=== PATIENT | female | born 1935 | race Caucasian/White ===

== ENCOUNTER 2017-04-15 09:37 | Emergency (ER) | payer MEDICARE ==
[2017-04-15 10:42] VITALS: BP 141/56
--- NOTE | 2017-04-15 11:23 | UC ---
UC General HPI - HPI Summary HPI Summary: Patient presents with complaints of 2-3 day onset generalized fatigue, body aches, and cough. She denies any chest or abdomen pain, nausea, vomiting, diarrhea, rashes or joint pain. She states she has had difficulty sleeping due to coughing. She states the coughing is nonproductive. - History of Current Complaint Chief Complaint: UCGeneralIllness Stated Complaint: COUGH Time Seen by Provider: 04/15/17 10:43 Hx Obtained From: Patient Onset/Duration: Gradual Onset, Lasting Days Timing: Constant Onset Severity: Mild Current Severity: Moderate Pain Intensity: 0 Associated Signs & Symptoms: Positive: Cough, Fever, Other - fatigue, malaise, weakness - Allergy/Home Medications Allergies/Adverse Reactions: Allergies Allergy/AdvReac Type Severity Reaction Status Date / Time No Known Allergies Allergy Verified 04/15/17 10:37 PMH/Surg Hx/FS Hx/Imm Hx Previously Healthy: Yes - Surgical History Surgical History: Yes Surgery Procedure, Year, and Place: lipo removal x3 - Family History Known Family History: Positive: Cardiac Disease, Hypertension - Social History Occupation: Retired Lives: With Family Alcohol Use: Daily Substance Use Type: None Smoking Status (MU): Never Smoked Tobacco Review of Systems Constitutional: Fever, Fatigue Eyes: Negative ENT: Negative Respiratory: Cough Gastrointestinal: Negative Genitourinary: Negative Motor: Negative Neurovascular: Negative Musculoskeletal: Myalgia Neurological: Negative Is Patient Immunocompromised?: No All Other Systems Reviewed And Are Negative: Yes Physical Exam Triage Information Reviewed: Yes Appearance: Ill-Appearing Vital Signs: Initial Vital Signs Temp 98 F 04/15/17 10:39 Pulse 86 04/15/17 10:39 Resp 16 04/15/17 10:39 BP 141/56 04/15/17 10:39 Pulse Ox 100 04/15/17 10:39 Vital Signs Reviewed: Yes Eye Exam: Normal ENT Exam: Normal Neck exam: Normal Neck: Positive: 1 Respiratory Exam: Normal Cardiovascular Exam: Normal Abdominal Exam: Normal Musculoskeletal Exam: Normal Neurological Exam: Normal Psychological Exam: Normal Skin Exam: Normal Course/Dx - Course Course Of Treatment: Patient presents with complaints of three day illness, fatigue, malaise, cough. A chest xray was obtained and read by the radiologist and reviewed by myself as negative, and I discussed this with the patient. Influnza swab was negative, however given the patient advanced age, immunocompromised at home I feel she warrent presuptive treatment. I RX tamiflu and tessalon for cough. I also recommend that the patient follow up with her PCP within 48 hours. - Differential Dx - Multi-Symptom Differential Diagnoses: Other - Influenza like illness cough Provider Diagnoses: influenza like illness. cough Discharge - Discharge Plan Condition: Stable Disposition: HOME Prescriptions: Benzonatate CAP* [Tessalon 100 MG CAP*] 100 mg PO TID PRN #14 cap PRN Reason: Cough Oseltamivir CAP* [Tamiflu CAP*] 75 mg PO BID #10 cap Patient Education Materials: Influenza (DC) Referrals: Rodolfo Kennedy MD [Primary Care Provider] - Additional Instructions: I recommend you follow up with your PCP in 48 hours.
--- NOTE | 2017-04-15 11:40 | RAD ---
INDICATION: Cough COMPARISON: None TECHNIQUE: PA and lateral views of the chest were obtained. FINDINGS: The heart and mediastinum are normal in size and contour. There is mild calcification overlying the arch of the aorta. The lungs are grossly clear. There is no evidence of large pleural effusion. Visualized bones are normal for the patient's age. A circumscribed air focus at the low mediastinum as a morphology and location most consistent with a gas-filled hiatal hernia. Gas seen beneath the left hemidiaphragm appears to be contained within the gastric fundus. 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
== END 2017-04-15 11:42 | disposition home or self-care (01) ==
LOC: UCEAST 09:37
DX: J11.1 Influenza due to unidentified influenza virus with other respiratory manifestations (principal); R05 Cough
CPT/HCPCS: 71046; 87502; 99212; G0463